=== PATIENT | male | born 1955 | race Caucasian/White ===

== ENCOUNTER 2024-04-30 13:38 | Emergency (ER) | payer MEDICARE, SELFPAY ==
[2024-04-30 13:45] VITALS: BP 136/82; PULSE 74; RESP 19; TEMP 37; O2SAT 98; BMI 38.5
--- NOTE | 2024-04-30 13:53 | EXP.UTC ---
Discharge Plan Disposition Patient Disposition: Home, Self-Care Condition: Good Prescriptions Prescriptions: New benzonatate 100 mg capsule 100 mg PO TIDP PRN (Reason: Cough) Qty: 30 0RF amoxicillin-pot clavulanate 875-125 mg Tablet 1 tab PO Q12H 7 Days Qty: 14 0RF benzonatate 100 mg capsule 100 mg PO TIDP PRN (Reason: Cough) Qty: 30 1RF Referrals Follow up/Referrals: Provider,Referral, MD [Primary Care Provider] - See instructions Activity Restrictions/Add. Instructions Additional Instructions/Restrictions: Watch the wound for signs of infection, such as redness, swelling, drainage, fever. etc. Take tylenol for pain. Take the antibiotics (amoxicillin/pot-clavulanate) as directed. Follow up with your regular doctor for a wound recheck in a few days. The sutures will dissolve and absorb, so you should not need to return for suture removal. GO TO THE ER FOR ANY WORSENING SYMPTOMS OR CONCERNS. 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 He came down and hit his mouth on the logs. He has a laceration on the inside of his upper lip and inside his lower lip. He denies any head pain or head injury. He states that he did not lose consciousness. He denies any injury or chips to his teeth. He denies any tongue injury. He denies any neck pain and any other injury and complaints. Related Data Previous Rx's ?Medication ?Instructions ?Recorded amoxicillin 875 mg-potassium 1 tab PO Q12H 7 days #14 tabs 04/30/24 clavulanate 125 mg tablet benzonatate 100 mg capsule 100 mg PO TIDP PRN Cough #30 caps 04/30/24 benzonatate 100 mg capsule 100 mg PO TIDP PRN Cough #30 caps 04/30/24 Allergies Allergy/AdvReac Type Severity Reaction Status Date / Time No Known Allergies Allergy Verified 04/30/24 13:55 [facility] Disclaimer: The information contained in this section may have been updated after the patient was seen, as this information can be updated by other users. Medical History (Updated 04/30/24 @ 14:28 by Raza Victor APRN) No significant past medical history Social History Smoking Status: Never smoker alcohol intake: never current occupational status: employed Travel in the last 8 weeks: None ROS Obtained: Yes All systems reviewed & no additional complaints except as documented Constitutional Constitutional: Denies chills, Denies fever(s) and Denies headache(s) Eyes Eyes: Denies eye discharge ENT Ears, Nose, Mouth, and Throat: Reports as per HPI, Denies dizziness, Denies otalgia, Denies headache(s) and Denies sore throat Cardiovascular Cardiovascular: Denies chest pain Respiratory Respiratory: Denies shortness of breath, Denies chest congestion, Denies cough, Denies stridor and Denies wheezing Gastrointestinal Gastrointestingal: Denies nausea or vomiting Musculoskeletal Musculoskeletal: Reports system reviewed and no additional complaints, except as documented and Denies arthralgias Integumentary/Breasts Skin/Breast: Reports as per HPI and Reports wounds Neurologic Neurologic: Denies dizziness, Denies headache(s) and Denies paresthesias Allergic/Immunologic Allergic/Immunologic: Denies wheezing Physical Exam General General appearance: alert and in no apparent distress Head Head exam: atraumatic, normocephalic and normal inspection Eye Eye exam: Present normal appearance, PERRL and EOMI ENT ENT exam: Present mucous membranes moist, TM's normal bilaterally and normal external ear exam Expanded ENT Exam Nose exam: Absent sinus tenderness Nasal speculum exam: Bilateral: normal Mouth exam: Present lip swelling and other (there is a 2 cm linear laceration on the inside of his upper lip. there is a 0.5 cm linear laceration on the inside of his lower lip. They do not go all the way thru his lip. no chips to teeth and no loose teeth noted. no injury to tongue noted. ); Absent drooling Teeth exam: Present normal inspection Throat exam: Present normal inspection Neck Neck exam: Present normal inspection, full ROM and trachea midline; Absent meningismus or lymphadenopathy Chest Chest inspection: Present normal inspection and symmetric chest wall rise; Absent tenderness Respiratory Respiratory exam: Present normal lung sounds bilaterally; Absent respiratory distress Cardiovascular Cardiovascular exam: Present regular rate and normal rhythm; Absent JVD Abdominal Exam Abdominal exam: Present soft and normal bowel sounds; Absent distention, tenderness or guarding Extremities Exam Extremities exam: Present normal inspection, full ROM and normal capillary refill; Absent calf tenderness Back Exam Back exam: Present normal inspection; Absent tenderness Neurological Exam Neurological exam: Present alert and oriented X3 Psychiatric Psychiatric exam: Present normal affect and normal mood Skin Skin exam: Present warm, dry, intact and normal color Lymphatic Lymphatic Findings: no adenopathy Medical Decision Making Medical Records Medical records reviewed: No I reviewed the patient's medical records. Screening: Per USPSTF and CDC recommendations, given the prevalence of disease in our region, it is our hospital?s policy to screen for HIV and viral Hepatitis for all patients aged 18 and over and those with ongoing risk factors. Basil Inquiry Pt receiving controlled substance: No Procedures Risk/Benefits of Procedure(s) Were Explained: Yes Laceration Laceration 1: Site: lip (upper) Size (cm): 2 Description: linear Depth: simple, single layer Local Anesthetic: lidocaine 1% Amount of anesthesia used (mL): 1 Pre-repair: wound explored, irrigated extensively and deep structures intact Skin layer closed with: vicryl Size (cm): 5-0 Number of sutures: 4 Technique: simple, interrupted (he tolerated this well, good closure was obtained. the edges were approximated well, no foreign body was noted during exploring the wound well. ) Laceration 2: Site: lip (lower) Size (cm): 0.5 Description: linear Depth: simple, single layer Local Anesthetic: lidocaine 1% Amount of anesthesia used (mL): 0.5 Pre-repair: wound explored, irrigated extensively and deep structures intact Skin layer closed with: vicryl Size (cm): 5-0 Number of sutures: 1 Technique: simple, interrupted (he tolerated this well, good closure was obtained, the edges were approximated well. )
[2024-04-30 14:40] VITALS: BP 136/82; PULSE 74; RESP 19; TEMP 37; O2SAT 98
== END 2024-04-30 14:47 | disposition home or self-care (01) ==
PROVIDERS: Emergency Provider Nurse Practitioner Family
DX: S01.511A Laceration without foreign body of lip, initial encounter (principal); W01.0XXA Fall on same level from slipping, tripping and stumbling without subsequent striking against object, initial encounter
CPT/HCPCS: 12011; 99214; G0382

== ENCOUNTER 2024-09-04 09:39 | Outpatient (RCR) | payer MEDICARE, SELFPAY | END 2024-09-04 23:59 | disposition home or self-care (01) | LOC: PT 09:39 | DX: L03.115 Cellulitis of right lower limb (principal); I10 Essential (primary) hypertension | CPT/HCPCS: 97163 ==

== ENCOUNTER 2024-09-11 14:04 | Outpatient (CLI) | payer MEDICARE, SELFPAY ==
[2024-09-11 13:05] LABS: Basophils # 0.1 K/mm3 (0-0.2); Eosinophils # 0.1 Kmm3 (0.0-0.4); Eosinophils % 0.9 % (0.1-12.0); Hematocrit 39.4 % (42.0-52.0); Immature Granulocytes # 0.06 10^3uL; Immature Granulocytes % 0.7 %; Lymphocytes # 1.9 K/mm3 (0.7-4.5); Mean Corpuscular Hemoglobin 29.3 pg (27.0-31.2); Mean Corpuscular Volume 88.9 fl (80-94); Mean Platelet Volume 9.2 fl (7.4-10.4); Monocytes # 0.5 K/mm3 (0.1-1.0); Monocytes % 5.7 % (1.7-9.3); Neutrophils # 6.4 K/mm3 (1.8-7.8); Neutrophils % 70.7 % (37.0-80.0); Nucleated Red Blood Cells # 0 10^3/uL; Nucleated Red Blood Cells % 0 %; Platelet Count 387 K/mm3 (142-424); Red Blood Count 4.43 M/mm3 (4.60-6.20); Red Cell Distribution Width 12.5 % (11.5-17.5); Red Cell Distribution Width-SD 40.4 fL
[2024-09-11 13:31] LABS: Alanine Aminotransferase 19 U/L (12-78); Albumin Level 3.1 g/dl (3.5-5.0); Albumin/Globulin Ratio 0.7 (1.1-1.8); Alkaline Phosphatase 90 U/L (38-126); Anion Gap 7.8 mEq/L (5-15); Aspartate Amino Transferase 26 U/L (17-59); Bilirubin,Total 1.1 mg/dl (0.2-1.3); Blood Urea Nitrogen 18 mg/dl (9-20); Calcium 8.5 mg/dl (8.4-10.2); Carbon Dioxide 27 mmol/L (22.0-30.0); Chloride 103 mmol/L (98-107); Chol/HDL Ratio 5.1 (1-3.5); Cholesterol 128 mg/dl (140-200); Estimated Glomerular Filt Rate 112 ml/min (>60); GFR (African American) 135 ML/MIN (>60); Globulin 4.4 g/dL (1.3-3.2); Glucose 92 mg/dl (74-100); HDL Cholesterol 25 mg/dl (40-60); Potassium 3.8 mmoL/L (3.5-5.1); Sodium 134 mmol/L (136-145); Total Protein,Serum 7.5 g/dl (6.3-8.2); Triglycerides 162 mg/dl (30-150); VLDL Cholesterol 32 mg/dL (0-40)
[2024-09-11 13:40] LABS: NT Pro Brain Natriuretic Pep. 155 pg/mL (0-125)
[2024-09-11 13:42] LABS: Direct LDL Cholesterol 62.65 mg/dL (100-129)
[2024-09-11 18:02] LABS: Hemoglobin A1C 4.9 % (4.0-6.0)
== END 2024-09-11 23:59 | disposition home or self-care (01) ==
LOC: LAB.DROPOF 14:04
PROVIDERS: PCP Internal Medicine; Visit Provider Internal Medicine
DX: Z00.00 Encounter for general adult medical examination without abnormal findings (principal); Z13.1 Encounter for screening for diabetes mellitus; Z13.220 Encounter for screening for lipoid disorders; R60.9 Edema, unspecified; R06.02 Shortness of breath; E66.9 Obesity, unspecified
CPT/HCPCS: 36415; 80053; 80061; 83036; 83880; 85025

== ENCOUNTER 2024-10-05 11:30 | Outpatient (RCR) | payer MEDICARE, SELFPAY | END 2024-10-05 23:59 | disposition home or self-care (01) | LOC: PT 11:30 | DX: I89.0 Lymphedema, not elsewhere classified (principal) | CPT/HCPCS: 97140; 97760 ==

== ENCOUNTER 2024-10-13 13:00 | Outpatient (RCR) | payer MEDICARE, SELFPAY | END 2024-10-13 23:59 | disposition home or self-care (01) | LOC: PT 13:00 | DX: I89.0 Lymphedema, not elsewhere classified (principal) | CPT/HCPCS: 97140 ==

== ENCOUNTER 2024-11-06 09:57 | Outpatient (CLI) | payer MEDICARE, SELFPAY ==
--- OUTSIDE RECORDS SUMMARY | 2024-11-07 09:51 | XMS_ITS | Clinical Summary ---
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 20 tablet 04/28/2018 Active Active Problems No known active problems Social History Tobacco Use Types Packs/Day Years Used Date Smoking Tobacco: Never Abuse Screen Answer Date Recorded Unsafe at Home or Work/School Not on file Feels Threatened by Someone? Not on file 02/2023 Does Anyone Keep You from Co ntacting Others or Doint Things Outside the Home? Not on file 01/16/2023 Physical Sign of Abuse Present Not on file 1 Housing Stability Answer Date Recorded Current Living Arrangements Not on file 01/06 Potentially Unsafe Housing Conditions Not on thu e 01/16/2023 Family and Community Support Answer Brock e Recorded Help with Day-to-Day Activities Not on file 01/16/2023 Lonely or Isolated Not on file 01/16/2023 Employment Answer Date Recorded Do you want help finding or keeping work or a alexander b? Not on file 01/16/2023 Disabilities Answer Date Recorded Concentrating, Remembering, or Making Decisions Difficulty Not on file 01/16/2023 Doing Errands Independently Difficulty Not on fi le 01/16/2023 Education Answer Date Recorded Help with school or training? Not on file Preferred Language Not on file 01/16/2023 Sex and Gender Information Value Date Recorded Sex Assigned at Not on file Legal Sex Male 8:13 AM EDT Gender Identity Not on file Sexual Orientation Not on file Last Filed Vital Signs Vital Sign Reading Time Taken Comments Blood Pressure 134/78 04/28/2018 9:04 AM EST Pulse 100 04/28/2018 9:04 AM EST Temperature 36.9 C (98.4 F) 04/28/2018 9:04 AM EST Respiratory Rate 12 04/28/2018 9:04 AM EST Oxygen Saturation 98% 04/28/2018 9:04 AM EST Inhaled Oxygen Concentration - - Weight 141 kg (311 lb) 04/28/2018 9:04 AM EST Height 185.4 cm (6' 1 ) 04/28/2018 9:04 AM EST Body Mass Index 41.03 04/28/2018 9:04 AM EST Plan of Treatment Health Maintenance Due Date Last Done Comments TDAP/TD VACCINES (1 - Tdap) 1973 COLOGUARD 10/21/1999 COLON CANCER SCREENING 5 YEAR SIGMOIDOSCOPY 10/21/1999 COLONOSCOPY 10/21/1999 COLORECTAL CANCER SCREENING 10/21/1999 CT COLONOGRAPHY 10/21/1999 FECAL OCCULT BLOOD TEST 10/21/1999 FIT Testing (1 year) 10/21/1999 Pneumococcal Vaccine 50+ (1 of 1 - PCV) 2004 ZOSTER VACCINE (1 of 2) 2004 ANNUAL PHYSICAL 07/16/2016 HEPATITIS C SCREENING 07/16/2016 AAA SCREEN ONCE 10/21/2019 COVID-19 Vaccine ( - 2023-25 season) 2023 INFLUENZA VACCINE 01/06/2025 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
== END 2024-11-06 23:59 | disposition home or self-care (01) ==
LOC: LAB.DROPOF 11-07 09:49
PROVIDERS: PCP Internal Medicine; Visit Provider Internal Medicine
DX: R68.82 Decreased libido (principal); R53.83 Other fatigue
CPT/HCPCS: 84403